=== PATIENT | female | born 1950 | race Caucasian/White ===

== ENCOUNTER 2020-03-07 08:00 | Day surgery (SDC) | payer MEDICARE, OTHER, SELFPAY ==
[2020-03-04 08:02] VITALS: BMI 24.7
[2020-03-07] VITALS (8 sets, daily range): BP systolic 108–168; BP diastolic 57–83; PULSE 65–92; RESP 10–20; TEMP 36.2–37.4; O2SAT 96–100; BMI 24.8
--- NOTE | 2020-03-07 | PATH_ITS ---
[facility] Accession Number: [id number] . 01 Material submitted: . endometrium - EMC AND POLYP . 01 Diagnosis: Endometrium and Endometrial Polyp, Curettage: Fragment of endometrial/lower uterine segment mucosa with extensive cautery artifact, compatible with a clinical impression of polyp. No evidence of neoplasm; please see comment. V 03/11/2020 0951 Local . 01 Comment: Extensive cautery artifact is present, hindering complete evaluation. That said, there is no definite evidence of neoplasm in numerous deeper levels examined. . 01 Electronically signed: . Duglas Cardona MD, PhD, Pathologist NPI- [id number] . 01 Gross description: . The specimen is received in formalin, labeled EMC and polyp and consists of multiple franco fragments of soft tissue admixed with mucous and clotted blood, measuring 2.0 x 1.0 x 0.2 cm in aggregate. The specimen is filtered and entirely submitted in cassette A1. ([id number]) /[facility] 03/08/2020 1420 Local . 01 Microscopic: . Sections are of a fragment of apparent lower uterine segment/endometrial mucosa with extensive cautery artifact. Also present are scant strips of squamous and endocervical epithelium. Numerous deeper sections throughout the block are examined, and there is no definitive evidence of hyperplasia, dysplasia or malignancy. That said, extensive cautery artifact hinders the evaluation. Given the extensive cautery artifact, a p16 immunohistochemical stain is performed to evaluate for a high risk HPV driven neoplasm, and is negative for diffuse block-like staining. . * This test was developed and its performance characteristics determined by [facility]. It has not been cleared or approved by the U.S. Food and Drug Administration. The FDA has determined that such clearance or approval is not necessary. This test is used for clinical purposes. It should not be regarded as investigational or for research. . 01 Pathologist provided ICD-10: N88.2, N84.0 . 01 CPT . 067099, N21585 Performed at: [address] [facility] [address], [place], [place] [id number] MD Lyle Green MD Phone: [phone]
[2020-03-07] MEDS: LACTATED RINGERS 1,000 ML 100 ML IV (08:54)
--- NOTE | 2020-03-07 10:06 | SUR.OPER ---
Lithotomy on padded OR bed, head on pillow, arms secured on padded arm boards at <90 degrees abduction. Legs secured in padded yellow fins stirrups.
--- NOTE | 2020-03-07 10:59 | P.HP_ITS ---
History of Present Illness History of Present Illness Date Patient Seen: 03/07/20 Time Patient Seen: 09:45 Chief complaint: [facility] [place]arrative: Patient is a 69-year-old who presents for a D&C hysteroscopy with resection of uterine mass. Mass was found on ultrasound after patient complained of pelvic pain. Patient History Medical History (Updated 02/23/20 @ 21:06 by Dee Lazo) Hearing loss (Chronic) Surgical History (Updated 02/23/20 @ 21:06 by Dee Lazo) Anesthesia (Resolved) History of appendectomy (Resolved ~1968) Family & Social History Family History (Updated 02/23/20 @ 21:09 by Dee Lazo) Father History of heart disease Mother Alzheimer's disease Grandmother Diabetes mellitus Social History: household members spouse Tobacco & Substance use: Smoking Status Former smoker alcohol intake current alcohol intake frequency 0-2 drinks per day Substance Use Type does not use Meds Home Medications and Allergies Home Medications Medication Instructions Recorded Confirmed Type rosuvastatin 5 mg tablet 5 mg PO DAILY 02/23/20 03/07/20 History Allergies Allergy/AdvReac Type Severity Reaction Status Date / Time Penicillins Allergy Mild Rash Verified 03/07/20 08:36 Exam Vital Signs (past 8 hours): - HEENT: No thyromegaly, no anterior cervical or supraclavicular lymphadenopathy. Lungs:Clear to auscultation bilaterally, no wheezes. Cardiovascular: Regular rate and rhythm, no murmurs, rubs, or gallops. Abdomen: No scars. No hepatosplenomegaly. No masses palpable. External genitalia: Normal Vagina: Atrophic Cervix: Slightly stenotic Bimanual exam: 5 Week size anteverted uterus. Mobile. Rectal: No masses. 03/07/20 08:41 03/07/20 10:43 03/07/20 10:47 Temperature 99.3 F 97.7 F Pulse Rate 81 65 68 Respiratory Rate 20 10 L 12 Blood Pressure 158/83 H 108/72 112/65 Pulse Oximetry 98 98 96 03/07/20 10:53 Temperature Pulse Rate 92 H Respiratory Rate 16 Blood Pressure 136/76 Pulse Oximetry 98 Oxygen Delivery Method Room Air Assessment & Plan Assessment & Plan narrative: Assessment: 69-year-old with a uterine mass that was picked up on ultrasound Plan: D&C hysteroscopy with resection of mass The risks, benefits, and alternatives to the procedure were explained to the patient. The risks including bleeding, infection, and uterine perforation. She understands these risks and agrees to proceed. A full par Q was held and consent form was signed. COVID-19 COVID-19 status: Negative Result date/Date tested (Pos, Neg/Pending): 03/04/20 Time Spent With Patient Time with patient: less than 15 minutes
--- NOTE | 2020-03-07 11:02 | PM.PREOP ---
Pre-operative Note COVID-19 COVID-19 status: Negative Result date/Date tested (Pos, Neg/Pending): 03/04/20 Interval Note History & Physical reviewed/Exam performed by Physician: Yes Changes to H&P: No H&P completed within 30 days and has changed as indicated here:: 03/07/20
--- NOTE | 2020-03-07 11:02 | PM.GYNOP.1 ---
Operative Date/Time/Diagnoses Date of procedure: 03/07/20 Time of procedure: 11:02 Pre-op diagnosis: Uterine mass Post-op diagnosis: same Procedure & Clinicians Procedure: Procedures Operation Date: 03/07/20 09:45 Actual Procedures Side Surgeon p Hysteroscopy D&C, Resection of Polyp Not Applicable Karla Waters MD Indications: Uterine mass seen on ultrasound Surgeon: Karla Waters Anesthesia Type: General (LMA) Operative Notes Findings: Five week size anteverted uterus Both fallopian tube ostia observed Small approximately 0.5 cm polyp coming from the area of the right fallopian tube ostia Closure Type: not applicable Specimen(s): endometrial curettings and endometrial polyp Estimated blood loss (mL): 5 Blood products transfused: none Procedure in detail: After informed consent was obtained, the patient was taken to the operating room where she was placed in the dorsal supine position. After adequate LMA general anesthesia was achieved, she was placed in the dorsal lithotomy position, and prepped and draped in the usual sterile fashion. A bivalve speculum was placed into the vagina and the anterior lip of the cervix grasped with a single-tooth tenaculum. Starting with the gold handle dilators the cervix was dilated up to the # 6. Dilation was switched to the Hegar dilators and went up to the # 8 Hegar dilator. The hysteroscope passed easily into the endometrial cavity. Both fallopian tube ostia were observed. There was a small polyp coming from the area of the right fallopian tube ostia. The hysteroscope was switched to the resectoscope. The cervix was dilated to the # 9 Hegar dilator. The resectoscope was passed easily into the endometrial cavity. Two passes with a loop resected the polyp. The resectoscope was removed. Sharp curettage was performed yielding minimal amount of endometrial curettings. The instruments were removed from the uterus. The single-tooth tenaculum was removed from the anterior lip of the cervix. There appeared to be a laceration on the anterior lip of the cervix. The [id number]-mx-gcyck suture with 3 0 Vicryl was placed for hemostasis. The bivalve speculum was removed from the vagina. Sponge, lap, and instrument counts were correct x2. The patient tolerated the procedure well, and was taken to PACU in stable condition. Complications: none Post-operative Condition: stable Disposition: PACU Plan for aftercare: Home after recovery
--- NOTE | 2020-03-07 11:58 | SUR.PHASEII ---
1120-Pt wanting to rest before trying to get up and get dressed. Pt sitting up in bed all dc instructions given and pt verbalizes understanding. Pt drinking fluids without problems.
--- NOTE | 2020-03-07 12:01 | SUR.PHASEII ---
1140-Pt assisted up by LUCY Cotter, iv removed site clear. Pt up and ambulating gait steady. Getting dressed now.
--- NOTE | 2020-03-07 12:02 | SUR.PHASEII ---
1145-Pt dcd by LUCY Reed via in stable condition with all belongings to private vehicle at [facility].
== END 2020-03-07 11:45 | disposition home or self-care (01) ==
PROVIDERS: PCP Nurse Practitioner Family; Referring Provider Obstetrics & Gynecology; Visit Provider Obstetrics & Gynecology
PROC: 0UDB8ZZ Extraction of Endometrium, Via Natural or Artificial Opening Endoscopic (ICD-10-PCS; CPT 58558; principal; 2020-03-07 09:45)
DX: N88.2 Stricture and stenosis of cervix uteri (principal); R01.1 Cardiac murmur, unspecified; N84.0 Polyp of corpus uteri
CPT/HCPCS: 58558; J1100; J1885; J2250; J2405; J2704; J3010